=== PATIENT | female | born 1985 | race African-American/Black ===

== ENCOUNTER → 2016-04-09 | Day surgery (SDC) | payer OTHER | END | disposition home or self-care (01) | LOC: FRADUS-SUR 08:40 | PROVIDERS: ATTEND Obstetrics & Gynecology Reproductive Endocrinology | PROC: BU081ZZ Plain Radiography of Uterus and Fallopian Tubes using Low Osmolar Contrast (ICD-10-PCS; principal; 2016-04-09) | DX: Z31.41 Encounter for fertility testing (principal) | CPT/HCPCS: 58340; 74740-TC; 76000-TC; 84703; C1726; Q9967 ==

== ENCOUNTER 2016-08-27 08:24 | Day surgery (SDC) | payer OTHER ==
[2016-08-19 10:47] VITALS: BMI 18.6
[2016-08-27] MEDS ORDERED: MIDAZOLAM HCL 2 MG/2 ML SINGLE DOSE VIAL ONE (12:30)
[2016-08-27] MEDS ORDERED: IBUPROFEN 400 MG TABLET (FP) PO PRN (12:48)
[2016-08-27] MEDS ORDERED: ONDANSETRON 4 MG/2 ML VIAL IVPUSH PRN (12:49)
[2016-08-27] MEDS ORDERED: IBUPROFEN 600 MG TABLET (FP) PO PRN (12:50)
[2016-08-27] MEDS ORDERED: LACTATED RINGERS SOLUTION 1,000 ML IV SCH ×2 (13:00)
[2016-08-27] MEDS ORDERED: oxyCODONE HCL 5 MG TABLET PO PRN ×2 (14:45)
[2016-08-27 16:44] VITALS: BP 110/59; PULSE 63; TEMP 97.9
--- NOTE | 2016-08-28 11:18 | OP ---
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 OPERATION: Examination under anesthesia, diagnostic hysteroscopy, and hysterosalpingogram. SURGEON: Socorro Oconnell MD BEND UP: [place] ANESTHESIA: General with LMA. BLOOD LOSS: 0. DRAINS: Figueroa with 300 mL. FLUIDS: 1 mL. FINDINGS: Examination under anesthesia revealed that the cervix was palpably flush with the vagina. Bimanual examination demonstrated difficult to palpate small uterus approximately 3 cm. Hysteroscopy findings include a small uterine cavity, unable to appreciate the ostia bilaterally. PROCEDURE FOLLOWS: The patient was taken to the operating room where SCDs were placed and turned on. General anesthesia was induced without difficulty. Patient was placed in dorsal lithotomy position using Madi stirrups. She was examined for the above-noted findings. Next, patient was prepped and draped in the usual sterile fashion. Figueroa catheter was inserted to the bladder. [place] speculum was used to identify the cervix. Allis clamp was placed on the anterior lip of the cervix. The cervix was dilated with no cervical resistance, a No. 6 dilator easily passed through the cervix. Next, a diagnostic hysteroscope was then introduced through the cervix without difficulty. The fundus was identified. The uterus was found to be very small in capacity. No ostia were visualized bilaterally. The hysteroscope was then removed from the vagina. Next, the uterus was sounded to 5 cm. A hysteroscope balloon catheter was then threaded through the cervix and into the uterus. The balloon was inflated in the lower uterine segment. Hysterosalpingogram was then performed demonstrating a small capacity uterus with no fill or spill into the tubes bilaterally. The hysterosalpingogram catheter was then removed from the uterus and cervix. The Allis clamp was taken off the cervix, which was found to be hemostatic. All instruments were removed from the vagina, and the Figueroa catheter was removed. The patient was repositioned in dorsal supine position, extubated without event, and taken to the recovery room in stable condition. Dr. Carlson was present throughout this entire procedure. This is Dr. Aponte dictating for Dr. Socorro Carlson. Anneliese [id number]
== END 2016-08-27 15:10 | disposition home or self-care (01) ==
LOC: FASU 08:24
PROVIDERS: ATTEND Obstetrics & Gynecology Reproductive Endocrinology
PROC: 0UJ88ZZ Inspection of Fallopian Tube, Via Natural or Artificial Opening Endoscopic (ICD-10-PCS; 2016-08-27)
PROC: 0UJD8ZZ Inspection of Uterus and Cervix, Via Natural or Artificial Opening Endoscopic (ICD-10-PCS; 2016-08-27)
PROC: BU081ZZ Plain Radiography of Uterus and Fallopian Tubes using Low Osmolar Contrast (ICD-10-PCS; principal; 2016-08-27 11:45)
DX: Z31.41 Encounter for fertility testing (principal); Q51.811 Hypoplasia of uterus
CPT/HCPCS: 72170-TC; 84703; 94760; C1726; Q9967